=== PATIENT | female | born 1930 | race Caucasian/White ===

== ENCOUNTER 2018-06-04 17:54 | Inpatient (IN) ==
[2018-06-04] MEDS ORDERED: *HR* FentaNYL (PF) 100 MCG/2 ML VIAL IVP ONE ×2 (18:04→20:07)
--- NOTE | 2018-06-04 18:09 | Emergency Department Note ---
Disposition Clinical Impression: Fall Qualifiers: Encounter type: initial encounter Qualified Code(s): W19.XXXA - Unspecified fall, initial encounter UTI (urinary tract infection) Qualifiers: Urinary tract infection type: site unspecified Hematuria presence: without hematuria Qualified Code(s): N39.0 - Urinary tract infection, site not specified Hip fracture, left Qualifiers: Encounter type: initial encounter Fracture type: closed Qualified Code(s): S72.002A - Fracture of unspecified part of neck of left femur, initial encounter for closed fracture Disposition: Admitted As Inpatient Condition: Good Referrals: Felipe Holland DO [Primary Care Provider] - Forms: ED Satisfaction Letter Time of Disposition: 20:37 Fall HPI - General Chief Complaint: ED Extremity Injury, Lower Stated Complaint: Possible L hip fracture Time Seen by Provider: 06/04/18 18:02 Source: patient, family Nursing Notes Reviewed: Yes Vital Signs Reviewed: Yes - History of Present Illness HPI Narrative: 87-year-old female presents from home via EMS for evaluation after a fall. Patient was ambulated in her living room and fell. She is a history of recurrent falls and is currently being evaluated by her primary care physician. Patient without family who is in the home as well. She was on the floor for no more than 5 minutes. Family called EMS who transported patient this facility. Patient reports left hip pain. She denies hitting her head and denies loss of consciousness. Antiplatelet: None Anticoagulant: None PMH: GERD No history of hypertension, hyperlipidemia, CAD or ACS, diabetes ROS: Positive: Fall Negative: Fever, chills, nausea, vomiting, chest pains, palpitations, dyspnea, diaphoresis, neck pain, head pain, back pain, confusion, changes in vision, focused numbness or tingling - Related Data Allergies Allergy/AdvReac Type Severity Reaction Status Date / Time No Known Allergies Allergy Verified 06/04/18 18:02 All systems ED: reviewed and negative except as stated. Review of Systems: As Per HPI Fall PMH - Past Medical History Medical history: Reports: other - Social History Smoking Status: Former smoker Alcohol use: Reports: none Drug use: Reports: none Physical Exam Vital Signs Reviewed General: Patient is alert, oriented, and in no acute distress. Head: atraumatic, normocephalic Eye: normal appearance, PERRL, EOMI, no scleral icterus, no conjunctival injection ENT: mucous membranes moist, normal external ear exam Neck: normal inspection, trachea midline, full ROM Chest: normal inspection, symmetric chest rise Respiratory: Good respiratory effort. Bilateral breath sounds are clear without wheezing, crackles, or rhonchi. Cardiovascular: Regular rate and rhythm. No clicks, rubs, gallops, or murmors. Normal heart sounds. Abdomen: Bowel sounds present normoactive. Abdomen is soft, nondistended, and nontender. No guarding or rebound. No organomegaly noted. Musculoskeletal: Is able to wiggle her toes bilaterally. Left lower extremity shortened and externally rotated. Exquisite tenderness over left greater trochanter. No midline C-spine, T-spine, L-spine tenderness. No tenderness to light pressure to bilateral ASIS. Skin: warm, dry, intact. Neuro: GCS 15. Internal questions briskly and appropriately. Psych: Patient's affect is appropriate for situation. - General Limitations: no limitations General appearance: alert, in no apparent distress Course Course Narrative: EKG dated 06/04/2018 at 18:10 interpreted as sinus rhythm with rate of 77. PA 207; first-degree AV block. QRS 97, QTC 455. Normal axis. Nonspecific ST-T changes. Compared to previous EKG dated 03/17/2011 showing no acute ischemic changes or comparison; comparative EKG is sinus rhythm with no first-degree AV block. Recent MRI brain as part of the outpatient workup for her frequent falls was unremarkable. Serum hematology is unremarkable. Serum chemistry shows slight elevation in creatinine. This is consistent and actually slightly better than patient's baseline chronic kidney disease. EKG shows no acute ischemic changes. Urinalysis concerning for UTI; will cover empirically with 1 g Rocephin. Pain well-controlled with as needed doses of sentinel [address] head shows no acute process. CT cervical spine shows no acute process; multilevel degenerative changes present. X-ray chest unremarkable. X-ray pelvis and left hip shows left intertrochanteric fracture with varus deformity. I discussed the above with the admitting hospitalist, Dr. Jama, who agrees to accept the patient for fall, UTI, left hip fracture with orthopedic consult. I discussed the above with on-call orthopedic surgery, Dr. Chacon. He agrees to see the patient as consultation. Plan for surgery tomorrow; likely tomorrow evening. Nothing by mouth after midnight; this order has been ordered. Cervical Spine CT 06/04/18 18:02 IMPRESSION: No acute intracranial abnormality. 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 D/ / Mario De La Rosa / Mario De La Rosa Interpreting Provider: Mario De La Rosa Chest X-Ray 06/04/18 18:02 IMPRESSION: No acute cardiopulmonary disease. D/ / Kamlesh Aiken MD / Kamlesh Aiken MD Interpreting Provider: Kamlesh Aiken MD Head CT 06/04/18 18:02 IMPRESSION: No acute intracranial abnormality. 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 D/ / Mario De La Rosa / Mario De La Rosa Interpreting Provider: Mario De La Rosa Hip X-Ray 06/04/18 18:02 IMPRESSION: Acute intertrochanteric fracture of the left hip with varus deformity. D/ / Kamlesh Aiken MD / Kamlesh Aiken MD Interpreting Provider: Kamlesh Aiken MD Vital Signs Temperature 98.1 F 06/04/18 17:58 Pulse Rate 80 06/04/18 17:58 Respiratory Rate 16 06/04/18 17:58 Blood Pressure 170/79 06/04/18 17:58 O2 Sat by Pulse Oximetry 100 06/04/18 17:58 Temperature 98.1 F 06/04/18 17:58 Pulse Rate 80 06/04/18 17:58 Respiratory Rate 16 06/04/18 17:58 Blood Pressure 170/79 06/04/18 17:58 O2 Sat by Pulse Oximetry 100 06/04/18 17:58 Oxygen Delivery Oxygen Delivery Room Air Fall - Lab Data Result diagrams: 06/04/18 18:12 06/04/18 18:12 Lab Results 06/04/18 06/04/18 06/04/18 Range/Units 18:12 18:12 18:12 WBC 6.5 (4.3-11.1) K/mcL RBC 4.41 (3.82-4.97) M/mcL Hgb 12.8 (11.5-15.4) g/dL Hct 40.2 (35.3-44.9) % MCV 91.2 (83.0-100.0) fL MCH 29.0 (28.0-33.3) pg MCHC 31.8 (31.6-35.5) g/dL RDW 13.7 (11.5-14.5) % Plt Count 189 (140-400) K/mcL MPV 9.5 (9.4-12.4) fL Immature Gran % 1.4 (0-4) % Seg Neutrophils % 57.2 % Lymphocytes % 30.7 % Monocytes % 8.7 % Eosinophils % 1.4 % Basophils % 0.6 % Neutrophils # 3.7 (1.6-8.9) K/mcL Lymphocytes # 2.0 (0.6-4.6) K/mcL Monocytes # 0.6 (0.0-1.3) K/mcL Eosinophils # 0.1 (0.0-0.6) K/mcL Basophils # 0.0 (0.0-0.2) K/mcL PT 12.3 H (9.4-12.1) Seconds INR 1.1 Sodium 137 (136-145) mEq/L Potassium 4.6 (3.5-5.1) mEq/L Chloride 110 H (98-107) mEq/L Carbon Dioxide 20 L (23-29) mEq/L BUN 27 H (8-23) mg/dL Creatinine 1.28 H (0.60-1.20) mg/dL Est GFR ( Amer) 48 L (> 60) Est GFR (Non-Af Amer) 39 L (> 60) BUN/Creatinine Ratio 21 (6-26) Glucose 89 (70-105) mg/dL Calculated Osmolality 289 (280-300) Lactic Acid (0.5-2.2) mmol/L Calcium 9.2 (8.6-10.3) mg/dL Urine Color (Yellow) Urine Clarity (Clear) Urine pH (5.0-8.0) pH Units Ur Specific [place] (1.010-1.025) Urine Protein (Neg-Trace) mg/dL Urine Glucose (UA) (Normal) mg/dL Urine Ketones (Negative) mg/dL Urine Blood (Negative) Urine Nitrite (Negative) Urine Bilirubin (Negative) Urine Urobilinogen (Normal) mg/dL Ur Leukocyte Esterase (Negative) Urine Microscopic RBC (0-3) per hpf Urine Microscopic WBC (0-3) per hpf Ur Squamous Epith Cells (None-Few) per lpf Urine Bacteria (None-Few) per hpf Hyaline Casts (None-Few) per lpf Urine Yeast Ur Culture Indicated? (NO) 06/04/18 06/04/18 Range/Units 18:12 19:23 WBC (4.3-11.1) K/mcL RBC (3.82-4.97) M/mcL Hgb (11.5-15.4) g/dL Hct (35.3-44.9) % MCV (83.0-100.0) fL MCH (28.0-33.3) pg MCHC (31.6-35.5) g/dL RDW (11.5-14.5) % Plt Count (140-400) K/mcL MPV (9.4-12.4) fL Immature Gran % (0-4) % Seg Neutrophils % % Lymphocytes % % Monocytes % % Eosinophils % % Basophils % % Neutrophils # (1.6-8.9) K/mcL Lymphocytes # (0.6-4.6) K/mcL Monocytes # (0.0-1.3) K/mcL Eosinophils # (0.0-0.6) K/mcL Basophils # (0.0-0.2) K/mcL PT (9.4-12.1) Seconds INR Sodium (136-145) mEq/L Potassium (3.5-5.1) mEq/L Chloride (98-107) mEq/L Carbon Dioxide (23-29) mEq/L BUN (8-23) mg/dL Creatinine (0.60-1.20) mg/dL Est GFR ( Amer) (> 60) Est GFR (Non-Af Amer) (> 60) BUN/Creatinine Ratio (6-26) Glucose (70-105) mg/dL Calculated Osmolality (280-300) Lactic Acid 1.3 (0.5-2.2) mmol/L Calcium (8.6-10.3) mg/dL Urine Color Yellow (Yellow) Urine Clarity Cloudy A (Clear) Urine pH 5.0 (5.0-8.0) pH Units Ur Specific [place] 1.018 (1.010-1.025) Urine Protein Negative (Neg-Trace) mg/dL Urine Glucose (UA) Normal (Normal) mg/dL Urine Ketones Negative (Negative) mg/dL Urine Blood Moderate H (Negative) Urine Nitrite Positive A (Negative) Urine Bilirubin Negative (Negative) Urine Urobilinogen Normal (Normal) mg/dL Ur Leukocyte Esterase Moderate H (Negative) Urine Microscopic RBC 0-3 (0-3) per hpf Urine Microscopic WBC 30-50 H (0-3) per hpf Ur Squamous Epith Cells Few (None-Few) per lpf Urine Bacteria Many H (None-Few) per hpf Hyaline Casts None Seen (None-Few) per lpf Urine Yeast [employer]ICER Ur Culture Indicated? YES A (NO) Attestation Statement - Attestation Attestation: I, Isreal Gomez, examined this patient and my medical decision-making was reviewed with the AUTO B[employer] STRAIGHTENER/PA/Advanced Practice Nurse/Resident Physician. I agree with the documented findings, disposition and treatment plan as described except to the extent set forth below. 87-year-old female presents emergency Department with concerns of left hip pain after fall. Patient has had multiple falls in the past couple days. Patient states she continues lose her balance. She has intermittent rotated and shortened left lower extremity. Pelvic x-ray shows left hip fracture of the intertrochanteric area. The rest of the imaging and laboratory evaluation did not show significant amount. Patient will be admitted to the hospitalist and orthopedic surgeon was counseled that. Patient pain under control prior to departure to the emergency department.
[2018-06-04 18:27] LABS: Basophils % 0.6 %; Eosinophils # 0.1 K/mcL (0.0-0.6); Eosinophils % 1.4 %; Hematocrit 40.2 % (35.3-44.9); Hemoglobin 12.8 g/dL (11.5-15.4); Immature Granulocytes % 1.4 % (0-4); Lymphocytes % 30.7 %; Mean Corpuscular HGB Conc 31.8 g/dL (31.6-35.5); Mean Corpuscular Volume 91.2 fL (83.0-100.0); Mean Platelet Volume 9.5 fL (9.4-12.4); Monocytes # 0.6 K/mcL (0.0-1.3); Monocytes % 8.7 %; Neutrophils # 3.7 K/mcL (1.6-8.9); Platelet Count 189 K/mcL (140-400); Red Blood Count 4.41 M/mcL (3.82-4.97); Red Cell Distribution Width 13.7 % (11.5-14.5); Segmented Neutrophils % 57.2 %
[2018-06-04 18:46] LABS: INR 1.1; Prothrombin Time 12.3 Seconds (9.4-12.1)
[2018-06-04 18:49] LABS: Calcium 9.2 mg/dL (8.6-10.3); Potassium 4.6 mEq/L (3.5-5.1)
[2018-06-04 19:33] LABS: Bilirubin,Urine Negative (Negative); Blood,Urine Moderate (Negative); Clarity,Urine Cloudy (Clear); Color,Urine Yellow (Yellow); Glucose,Urine (UA) Normal (Normal); Ketones,Urine Negative (Negative); Leukocyte Esterase,Urine Moderate (Negative); Nitrite,Urine Positive (Negative); Protein,Urine Negative (Neg-Trace); Specific Gravity,Urine 1.018 (1.010-1.025); Urobilinogen,Urine Normal (Normal)
[2018-06-04 19:35] LABS: Bacteria,Urine Many per hpf (None-Few); Hyaline Casts,Urine None Seen per lpf (None-Few); RBC,Urine 0-3 per hpf (0-3); Squamous Epithelial Cell,Urine Few per lpf (None-Few); WBC,Urine 30-50 per hpf (0-3)
[2018-06-04] MEDS ORDERED: cefTRIAXone 1,000 MG in 0.9 % Sodium Chloride Mini Bag 100 ML IVPB ONE (20:31)
[2018-06-04] MEDS ORDERED: Naloxone 0.4 MG/ML INJ IVP PRN (21:03)
--- NOTE | 2018-06-04 22:15 | Internal Med History&Physical ---
Date of Encounter: 06/04/18 Time of Encounter: 22:13 Internal Medicine - H&P: HPI Chief complaint: FALL Admitted From: Home Plans for Post Hospital Care: Transfer Inp Rehab Fac History of present illness: Mayra Ramos is an 87 year old woman who has been evaluated as an outpatient for recurring falls was brought in by EMS today after a fall that she suffered while she was ambulating in her living room. She reported left hip pain but denied hitting her head or losing consciousness. She was clinically and h emodynamically stable upon arrival. Imaging studies showed severe degenerative changes of her spine and an acute intertrochanteric fracture of the left hip with varus deformity an avulsion of the lesser trochanter with bones diffusely demineralized. She is admitted for further care. Past Med Surg Social Fam HX - Past Medical History Medical history: other Additional medical history: ARTHRITIS, ANXIETY - Past Surgical History Additional surgical history: ORTHOPEDIC SX'S - Social History Smoking Status: Former smoker Smokeless Tobacco Status: No Alcohol use: none Drug use: none Internal Medicine - H&P: Meds Antacid 06/04/18 [History] Colace 06/04/18 [History] Prozac 40 mg PO BID 06/04/18 [History] Allergy/AdvReac Type Severity Reaction Status Date / Time No Known Allergies Allergy Verified 06/04/18 18:02 All Systems PM: A 10-system review of systems was performed and is negative for pertinent findings except as documented above in the HPI. Family history reviewed and found non-contributory. - Constitutional Vitals: Temp Pulse Resp BP Pulse Ox 98.1 F 75 16 120/52 99 06/04/18 17:58 06/04/18 21:06 06/04/18 21:06 06/04/18 21:06 06/04/18 21:06 Exam: Vitals: Reviewed General: NAD. Skin: Warm and supple. HEENT: Moist mucous membranes. No conjunctivae pallor. Neck: No lymphadenopathy. No JVD. No carotid bruits. No palpable thyroid. Chest: Normal thoracic expansion. Normal breath sounds. Clear to auscultation. Heart: Normal S1 & S2; rhythmic. No rubs or murmurs. Abdomen: Non-distended, soft and non-tender to palpation. No peritoneal reaction. Extremities: Shortened left lower extremity with external rotation and exquisite tenderness over the left greater trochanter. Neurological: Awake, alert and oriented to person, place and time. Psych: Affect appropriate. Internal Med - H&P Results - Labs CBC & Chem 7: 06/04/18 18:12 06/04/18 18:12 Labs: Short CBC 06/04/18 Range/Units 18:12 WBC 6.5 (4.3-11.1) K/mcL Hgb 12.8 (11.5-15.4) g/dL Hct 40.2 (35.3-44.9) % Plt Count 189 (140-400) K/mcL Neutrophils # 3.7 (1.6-8.9) K/mcL BMP 06/04/18 18:12 Sodium 137 Potassium 4.6 Chloride 110 H Carbon Dioxide 20 L BUN 27 H Creatinine 1.28 H Glucose 89 Calcium 9.2 Urine 06/04/18 Range/Units 19:23 Urine Color Yellow (Yellow) Urine Clarity Cloudy A (Clear) Urine pH 5.0 (5.0-8.0) pH Units Ur Specific [place] 1.018 (1.010-1.025) Urine Protein Negative (Neg-Trace) mg/dL Urine Glucose (UA) Normal (Normal) mg/dL - Impressions ITS Impressions Cervical Spine CT 06/04/18 18:02 IMPRESSION: No acute intracranial abnormality. 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 D/ / Mario De La Rosa / Mario De La Rosa Interpreting Provider: Mario De La Rosa Chest X-Ray 06/04/18 18:02 IMPRESSION: No acute cardiopulmonary disease. D/ / Kamlesh Aiken MD / Kamlesh Aiken MD Interpreting Provider: Kamlesh Aiken MD Head CT 06/04/18 18:02 IMPRESSION: No acute intracranial abnormality. 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 D/ / Mario De La Rosa / Mario De La Rosa Interpreting Provider: Mario De La Rosa Hip X-Ray 06/04/18 18:02 IMPRESSION: Acute intertrochanteric fracture of the left hip with varus deformity. D/ / Kamlesh Aiken MD / Kamlesh Aiken MD Interpreting Provider: Kamlesh Aiken MD - Assessment and Plan (1) Hip fracture, left Current Visit: Yes Status: Acute Assessment and plan: Will be evaluated by orthopedics in the morning for surgical considerations. The patient has no known history of ischemic heart disease, congestive heart failure, cerebrovascular disease, preoperative insulin therapy for creatinine elevation greater than 2 and therefore is a class I risk for an intermediate risk surgical procedure. EKG shows normal sinus rhythm. No further testing deemed necessary at this time. Qualifiers: Encounter type: initial encounter Fracture type: closed Qualified Code(s ): S72.002A - Fracture of unspecified part of neck of left femur, initial encounter for closed fracture (2) Fall Current Visit: Yes Status: Acute Assessment and plan: She will benefit from PT/OT evaluation and inpatient rehabilitation for conditioning and strength exercises. Qualifiers: Encounter type: initial encounter Qualified Code(s): W19.XXXA - Unspecified fall, initial encounter (3) UTI (urinary tract infection) Current Visit: Yes Status: Acute Assessment and plan: Will treat her as a simple cystitis with a 3 day course of abx. No systemic signs of illness warranting a prolongation of therapy. Qualifiers: Urinary tract infection type: site unspecified Hematuria presence: without hematuria Qualified Code(s): N39.0 - Urinary tract infection, site not specified (4) DVT prophylaxis Current Visit: Yes Status: Acute Assessment and plan: SubQ heparin ordered. - Time Spent With Patient Total time spent is greater than 50% in coordination of care (as documented) at patient's floor/unit and/or counseling patient: Greater than 35 minutes
[2018-06-04] MEDS: *HR* Heparin 5,000 UNIT/ML VIAL SQ SCH (23:41)
[2018-06-04] MEDS: OXYCODONE Oral CONC 10 MG/0.5 ML ORAL.SYG SL PRN (23:41)
[2018-06-05] MEDS: Ketorolac 30 MG/ML VIAL IVP PRN ×2 (04:57→11:54)
[2018-06-05] MEDS: *HR* Heparin 5,000 UNIT/ML VIAL SQ SCH ×3 (05:17→21:13)
[2018-06-05] MEDS: CEFTRIAXONE IVPB SCH (09:16)
[2018-06-05] MEDS: WATER FOR INJ IVPB SCH (09:16)
--- NOTE | 2018-06-05 13:27 | Orthopedic Consult Note ---
Date of Encounter: 06/05/18 Time of Encounter: 13:00 Assessment and Plan (1) Hip fracture, left Current Visit: Yes Status: Acute Xrays showed Acute intertrochanteric fracture of the left hip with varus deformity. Discussed case with Dr. Lopez who recommends left hip IM nailing to be performed tomorrow. I reviewed the procedure as well as r/b/a with the patient and family. All questions were answered and she expressed understanding. Consent was signed and placed in chart. NPO after midnight tonight. Pain control per primary team. She has been cleared for surgery per hospitalist note and confirmed with nurse. She is receiving treatment for UTI. NWB until surgery. Will follow up with Jen Berkowitz PA-C in [facility] office at [phone]. appt card to be sent to floor. Qualifiers: Encounter type: initial encounter Fracture type: closed Qualified Code(s): S72.002A - Fracture of unspecified part of neck of left femur, initial encounter for closed fracture History of Present Illness Chief complaint: Left hip pain HPI: Ms. Ramos is a 87 year old female who presented to the ER with left hip pain after a fall yesterday at home around 4pm. She states she just got up out of a chair and bent over to get a tissue when she lost her balance and fell onto her left side. Family states she has had recurrent falls and has been following outpatient to investigate these falls but so far no known causes found. Pain described as dull aching that is localized to the hip but will radiate more sharp pain down into thigh with any motion of the leg. She denies any numbness or tingling in extremities. She does have a walker at home that she uses sometimes but was not using it when she fell. She denies hitting her head or LOC. Denies any other symptoms at this time. Past Med Surg Social Fam HX - Past Medical History Medical history: other Additional medical history: ARTHRITIS, ANXIETY - Past Surgical History Additional surgical history: ORTHOPEDIC SX'S - Social History Smoking Status: Former smoker Smokeless Tobacco Status: No Alcohol use: none Drug use: none Medications and Allergies Acetaminophen [8Hr Arthritis Pain] 650 mg PO Q8H PRN 06/05/18 [History] Docusate [Colace] 100 mg PO DAILY 06/05/18 [History] FLUoxetine HCl [Fluoxetine HCl] 40 mg PO BID 06/05/18 [History] LORazepam [Ativan] 0.5 mg PO Q12H PRN 06/05/18 [History] Allergy/AdvReac Type Severity Reaction Status Date / Time No Known Allergies Allergy Verified 06/05/18 09:29 All Systems Reviewed: The remainder of the systems were reviewed and are negative - Constitutional Constitutional: as per HPI - Cardiovascular Cardiovascular: as per HPI - Respiratory Respiratory: as per HPI - Musculoskeletal Musculoskeletal: as per HPI Physical Exam - Constitutional Vitals: Temp Pulse Resp BP Pulse Ox 98.8 F 66 16 92/53 93 06/05/18 11:31 06/05/18 11:31 06/05/18 06:44 06/05/18 11:31 06/05/18 11:31 - Hip left Tenderness with palpation: lateral (no erythema, ecchymosis or open wounds noted to left hip. tenderness to palpation of the lateral hip. LLE is shortened and externally rotated. no calf tenderness to palpation, good dorsiflexion of foot, sensation intact distally. ) Results - Labs Result Diagrams: 06/04/18 18:12 06/04/18 18:12 Labs: Abnormal lab results PT 12.3 Seconds (9.4-12.1) H 06/04/18 18:12 Chloride 110 mEq/L (98-107) H 06/04/18 18:12 Carbon Dioxide 20 mEq/L (23-29) L 06/04/18 18:12 BUN 27 mg/dL (8-23) H 06/04/18 18:12 Creatinine 1.28 mg/dL (0.60-1.20) H 06/04/18 18:12 Est GFR ( Amer) 48 (> 60) L 06/04/18 18:12 Est GFR (Non-Af Amer) 39 (> 60) L 06/04/18 18:12 Urine Clarity Cloudy (Clear) A 06/04/18 19:23 Urine Blood Moderate (Negative) H 06/04/18 19:23 Urine Nitrite Positive (Negative) A 06/04/18 19:23 Ur Leukocyte Esterase Moderate (Negative) H 06/04/18 19:23 Urine Microscopic WBC 30-50 per hpf (0-3) H 06/04/18 19:23 Urine Bacteria Many per hpf (None-Few) H 06/04/18 19:23 Ur Culture Indicated? YES (NO) A 06/04/18 19:23 H & H 06/04/18 Range/Units 18:12 Hgb 12.8 (11.5-15.4) g/dL Hct 40.2 (35.3-44.9) % All other labs normal. - Diagnostic results Hip x-ray: report reviewed (Acute intertrochanteric fracture of the left hip with varus deformity.), image reviewed Consult Discharge Plan - Plan Referrals: Felipe Holland DO [Primary Care Provider] - - Attending Attestation Case and plan of care discussed with supervising physician, Dr. Lopez, who was available for all aspects of care.
--- NOTE | 2018-06-05 14:57 | Internal Med Progress Note ---
<Brock Odonnell - Last Filed: 06/05/18 15:38> Hospitalist Progress Note - Encounter Date of Encounter: 06/05/18 - Exam Vitals: Temp Pulse Resp BP Pulse Ox 98.8 F 66 16 92/53 93 06/05/18 11:31 06/05/18 11:31 06/05/18 06:44 06/05/18 11:31 06/05/18 11:31 - Assessment and Plan (1) Intertrochanteric fracture of left hip Current Visit: Yes Status: Acute (2) Hypotension Current Visit: Yes Status: Acute (3) UTI (urinary tract infection) Current Visit: Yes Status: Acute (4) Fall Current Visit: Yes Status: Acute (5) Hip fracture, left Current Visit: Yes Status: Acute (6) DVT prophylaxis Current Visit: Yes Status: Acute (7) CKD (chronic kidney disease) stage 3, GFR 30-59 ml/min Current Visit: Yes Status: Chronic - Time Spent with Patient Total time spent is greater than 50% in coordination of care (as documented) at patient's floor/unit and/or counseling patient: Internal Medicine: Result - Labs CBC & Chem 7: 06/04/18 18:12 06/04/18 18:12 Labs: Short CBC 06/04/18 Range/Units 18:12 WBC 6.5 (4.3-11.1) K/mcL Hgb 12.8 (11.5-15.4) g/dL Hct 40.2 (35.3-44.9) % Plt Count 189 (140-400) K/mcL Neutrophils # 3.7 (1.6-8.9) K/mcL BMP 06/04/18 18:12 Sodium 137 Potassium 4.6 Chloride 110 H Carbon Dioxide 20 L BUN 27 H Creatinine 1.28 H Glucose 89 Calcium 9.2 Urine 06/04/18 Range/Units 19:23 Urine Color Yellow (Yellow) Urine Clarity Cloudy A (Clear) Urine pH 5.0 (5.0-8.0) pH Units Ur Specific [place] 1.018 (1.010-1.025) Urine Protein Negative (Neg-Trace) mg/dL Urine Glucose (UA) Normal (Normal) mg/dL - ABG Interpretation ABG results: PT/INR, D-dimer PT 12.3 Seconds (9.4-12.1) H 06/04/18 18:12 - Impressions Impressions Cervical Spine CT 06/04/18 18:02 IMPRESSION: No acute intracranial abnormality. 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 D/ / Mario De La Rosa / Mario De La Rosa Interpreting Provider: Mario De La Rosa Chest X-Ray 06/04/18 18:02 IMPRESSION: No acute cardiopulmonary disease. D/ / Kamlesh Aiken MD / Kamlesh Aiken MD Interpreting Provider: Kamlesh Aiken MD Head CT 06/04/18 18:02 IMPRESSION: No acute intracranial abnormality. 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 D/ / Mario De La Rosa / Mario De La Rosa Interpreting Provider: Mario De La Rosa Hip X-Ray 06/04/18 18:02 IMPRESSION: Acute intertrochanteric fracture of the left hip with varus deformity. D/ / Kamlesh Aiken MD / Kamlesh Aiken MD Interpreting Provider: Kamlesh Aiken MD Consult Discharge Plan - Plan Referrals: Felipe Holland DO [Primary Care Provider] - - Attending Attestation I examined this patient and my medical decision-making was reviewed with the Resident Physician on 06/05/18. I agree with the documented findings, disposition and treatment plan as described except to the extent set forth below. Ms Ramos is currently admitted for acute L hip fracture. She remains moderate to high risk due to potential for worsening clinical status. Ms Ramos is eating breakfast. Feels OK at this time. Has some pain. BP has been low today. Has received IV fluids. No fever or chills. Receiving IV Ceftriaxone for presumed UTI Exam Alert Comfortable Mucus membranes dry Heart not tachy. No murmur Lungs clear Abd soft No edema I/P 1. L intertrochanteric fracture - OR tomorrow 2. UTI - on Ceftriaxone 3. Fall - monitoring 4. Hypotension - suspect due to volume loss - monitor H/H with fracture. IV fluids given. Further diagnoses and plan as above. <Antony Cifuentes - Last Filed: 06/05/18 21:51> Hospitalist Progress Note - Encounter Date of Encounter: 06/05/18 Time of Encounter: 08:45 - Subjective Interval History: No acute events overnight. She endorses no acute distress. Continues to be Rocephin for UTI. Patient had a urine output of 50 mL since her admission. on bladder can she had zero urine output , afebrile, no white blood count, but pressure of 92/53. given her BP with systolics 90s and no Hx of CAD/CHF i bolused her with 500 mL NS. Repeat BP was 104/65 . Patient is scheduled for her surgery tomorrow - Exam Vitals: Temp Pulse Resp BP Pulse Ox 98.8 F 66 16 92/53 93 06/05/18 11:31 06/05/18 11:31 06/05/18 06:44 06/05/18 11:31 06/05/18 11:31 Exam: Vitals: Reviewed General: NAD. Skin: Warm and supple. HEENT: Moist mucous membranes. No conjunctivae pallor. Neck: No lymphadenopathy. No JVD. No carotid bruits. No palpable thyroid. Chest: Normal thoracic expansion. Normal breath sounds. Clear to auscultation. Heart: Normal S1 & S2; rhythmic. No rubs or murmurs. Abdomen: Non-distended, soft and non-tender to palpation. No peritoneal reacti on. Extremities: Shortened left lower extremity with external rotation and exquisite tenderness over the left greater trochanter. Neurological: Awake, alert and oriented to person, place and time. Psych: Affect appropriate. - Assessment and Plan (1) Fall Current Visit: Yes Status: Acute Assessment and Plan: -Patient endorses that she fell while trying to reach for something on the floor and lost her balance. -Patient's chest x-ray showed acute intertrochanteric fracture left hip with varus deformity -Patient's head CT was negative for any intracranial infarcts or masses. -Her cervical spine CT showed moderate several multilevel degenerative changes. -Orthopedic surgeries on board case has been discussed with the surgeon who recommends left hip IM nailing tomorrow - NPO tonight -Non weightbearing until surgery. -She has no past medical history of ischemic heart disease, CHF, airway disease like COPD/asthma therefore she would not be needing a preoperative cardiac risk assessment. Patient's EKG on admission was negative for any ST-T changes, heart strain/block,Brugada pattern,, LVH or HOCM -PT/OT evaluation s/p surgery for conditioning and strength exercises . (2) Hip fracture, left Current Visit: Yes Status: Acute Assessment and Plan: as above (3) UTI (urinary tract infection) Current Visit: Yes Status: Acute Assessment and Plan: -Patient's UA was positive for moderate leukocyte esterase and nitrites. There was also evidence of moderate amount of urine blood. -Exam patient endorses no suprapubic pain. She was afebrile with no carmen kocytosis. -Rocephin for a total of 3 days . (4) Hypotension Current Visit: Yes Status: Acute Assessment and Plan: -She was hypotensive this morning with systolics of 92/53. Likely due to bleeding at the interntrochanteric area because of fall. -No sepsis, patient is afebrile , not leukocytotic -s/p 500 mL NaCl- repeat blood pressure was 104/65. -Hb dropped from 12.8 to 10.2, repeat H&H pending -Continue to monitor (5) DVT prophylaxis Current Visit: Yes Status: Acute Assessment and Plan: SubQ heparin ordered. - Time Spent with Patient Total time spent is greater than 50% in coordination of care (as documented) at patient's floor/unit and/or counseling patient: Internal Medicine: Result - Labs CBC & Chem 7: 06/05/18 18:56 06/04/18 18:12 Labs: Short CBC 06/04/18 Range/Units 18:12 WBC 6.5 (4.3-11.1) K/mcL Hgb 12.8 (11.5-15.4) g/dL Hct 40.2 (35.3-44.9) % Plt Count 189 (140-400) K/mcL Neutrophils # 3.7 (1.6-8.9) K/mcL BMP 06/04/18 18:12 Sodium 137 Potassium 4.6 Chloride 110 H Carbon Dioxide 20 L BUN 27 H Creatinine 1.28 H Glucose 89 Calcium 9.2 Urine 06/04/18 Range/Units 19:23 Urine Color Yellow (Yellow) Urine Clarity Cloudy A (Clear) Urine pH 5.0 (5.0-8.0) pH Units Ur Specific [place] 1.018 (1.010-1.025) Urine Protein Negative (Neg-Trace) mg/dL Urine Glucose (UA) Normal (Normal) mg/dL - ABG Interpretation ABG results: PT/INR, D-dimer PT 12.3 Seconds (9.4-12.1) H 06/04/18 18:12 - Impressions Impressions Cervical Spine CT 06/04/18 18:02 IMPRESSION: No acute intracranial abnormality. 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 D/ / Mario De La Rosa / Mario De La Rosa Interpreting Provider: Mario De La Rosa Chest X-Ray 06/04/18 18:02 IMPRESSION: No acute cardiopulmonary disease. D/ / Kamlesh Aiken MD / Kamlesh Aiken MD Interpreting Provider: Kamlesh Aiken MD Head CT 06/04/18 18:02 IMPRESSION: No acute intracranial abnormality. 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 D/ / Mario De La Rosa / Mario De La Rosa Interpreting Provider: Mario De La Rosa Hip X-Ray 06/04/18 18:02 IMPRESSION: Acute intertrochanteric fracture of the left hip with varus deformity. D/ / Kamlesh Aiken MD / Kamlesh Aiken MD Interpreting Provider: Kamlesh Aiken MD <Brock Odonnell Skyla - Last Filed: 06/05/18 15:38> (1) Intertrochanteric fracture of left hip Qualifiers: Encounter type: subsequent encounter Fracture type: closed Fracture alignment: displaced Fracture healing: with routine healing Qualified Code(s): S72.142D - Displaced intertrochanteric fracture of left femur, subsequent encounter for closed fracture with routine healing (2) Hypotension Qualifiers: Hypotension type: hypotension due to hypovolemia Qualified Code(s): I95.89 - Other hypotension; E86.1 - Hypovolemia (3) UTI (urinary tract infection) Qualifiers: Urinary tract infection type: acute cystitis Hematuria presence: with hematuria Qualified Code(s): N30.01 - Acute cystitis with hematuria (4) Fall Qualifiers: Encounter type: subsequent encounter Qualified Code(s): W19.XXXD - Unspecified fall, subsequent encounter (5) Hip fracture, left Qualifiers: Encounter type: initial encounter Fracture type: closed Qualified Code(s): S72.002A - Fracture of unspecified part of neck of left femur, initial encounter for closed fracture <Antony Cifuentes - Last Filed: 06/05/18 21:51> (1) Fall Qualifiers: Encounter type: subsequent encounter Qualified Code(s): W19.XXXD - Unspecified fall, subsequent encounter (2) Hip fracture, left Qualifiers: Encounter type: initial encounter Fracture type: closed Qualified Code(s): S72.002A - Fracture of unspecified part of neck of left femur, initial encounter for closed fracture (3) UTI (urinary tract infection) Qualifiers: Urinary tract infection type: acute cystitis Hematuria presence: with hematuria Qualified Code(s): N30.01 - Acute cystitis with hematuria (4) Hypotension Qualifiers: Hypotension type: hypotension due to hypovolemia Qualified Code(s): I95.89 - Other hypotension; E86.1 - Hypovolemia
[2018-06-05] MEDS ORDERED: 0.9 % Sodium Chloride 500 ML IVC ONE (15:34)
[2018-06-05] MEDS ORDERED: *HR* LORazepam 0.5 MG TABLET PO PRN (15:49)
[2018-06-05 16:54] LABS: Hematocrit 31.7 % (35.3-44.9)
[2018-06-05 16:57] LABS: Hemoglobin 10.2 g/dL (11.5-15.4)
[2018-06-05 19:14] LABS: Hematocrit 32.1 % (35.3-44.9); Hemoglobin 10.5 g/dL (11.5-15.4)
--- NOTE | 2018-06-05 20:10 | Anesthesia Evaluation PreOp ---
Date of Encounter: 06/05/18 Time of Encounter: 22:11 - Past History Planned Operation: Left hip IM nail Cardiac History: Other (recurrent falls recently that are not syncopal in nature - so far negative outpatient workup) Pulmonary History: Former smoker DIRECTOR OF TRANSPORTATION History: Other (anxiety, facial sensations (likely neuropathic pain), unsteady gait) Other Medical History: Renal (ckd), Other (UTI) Anesthesia History: No Prior Anesthetic Complications, Past Anesthesia (orthopaedic surgeries) Alcohol Use: none Drug use: none Medications and Allergies Acetaminophen [8Hr Arthritis Pain] 650 mg PO Q8H PRN 06/05/18 [History] Docusate [Colace] 100 mg PO DAILY 06/05/18 [History] FLUoxetine HCl [Fluoxetine HCl] 40 mg PO BID 06/05/18 [History] LORazepam [Ativan] 0.5 mg PO Q12H PRN 06/05/18 [History] Allergy/AdvReac Type Severity Reaction Status Date / Time No Known Allergies Allergy Verified 06/05/18 09:29 - Meds/Allergy Pre-op Review Medications Reviewed: Yes Allergies Reviewed: Yes Beta Blockers on Current Med List: No Anesthesia Results - Labs 06/05/18 18:56 06/04/18 18:12 Anesthesia Exam Last Vital Signs Temp 98.8 F 06/05/18 18:29 Pulse 85 06/05/18 18:29 Resp 16 06/05/18 18:29 BP 89/59 06/05/18 18:29 Pulse Ox 94 06/05/18 18:29 Weight: 59 kg - HEENT Pupil (Motor): Pupils equal, EOMI Mallampati: III Teeth: Poor dentition Oral Opening: Greater than 3 - DIRECTOR OF TRANSPORTATION LOC: Oriented - Cardiac Rhythm: Regular Murmur: None - Pulmonary Breath Sounds: bilateral Clear Respiratory Effort: Symmetrical Anesthesia Assess/Plan ASA Score: 3 Level of consciousness: Cooperative Anesthetic Plan: General Monitoring Plan: Standard Monitors Recovery Plan: PACU
[2018-06-05] MEDS: FLUoxetine 20 MG CAPSULE PO SCH (21:13)
[2018-06-05] MEDS: OXYCODONE Oral CONC 10 MG/0.5 ML ORAL.SYG SL PRN (21:14)
[2018-06-06] MEDS ORDERED: Milk and Molasses Enema 200 ML RC ONE (02:45)
[2018-06-06] MEDS: *HR* Heparin 5,000 UNIT/ML VIAL SQ SCH ×2 (05:04→20:56)
[2018-06-06 06:02] LABS: Basophils % 0.4 %; Eosinophils % 0.4 %; Hemoglobin 10.8 g/dL (11.5-15.4); Immature Granulocytes % 0.8 % (0-4); Lymphocytes # 1.4 K/mcL (0.6-4.6); Mean Corpuscular HGB Conc 31.8 g/dL (31.6-35.5); Mean Corpuscular Hemoglobin 28.6 pg (28.0-33.3); Mean Corpuscular Volume 90.2 fL (83.0-100.0); Mean Platelet Volume 9.8 fL (9.4-12.4); Monocytes # 0.9 K/mcL (0.0-1.3); Platelet Count 143 K/mcL (140-400); Red Blood Count 3.77 M/mcL (3.82-4.97); Red Cell Distribution Width 13.6 % (11.5-14.5); Segmented Neutrophils % 74.4 %
[2018-06-06 06:07] LABS: INR 1.1; Prothrombin Time 12.5 Seconds (9.4-12.1)
[2018-06-06 06:17] LABS: Calcium 9.1 mg/dL (8.6-10.3); Potassium 4.8 mEq/L (3.5-5.1)
--- NOTE | 2018-06-06 08:01 | Internal Med Progress Note ---
<Rao Mcclure - Last Filed: 06/06/18 13:37> Hospitalist Progress Note - Encounter Date of Encounter: 06/06/18 Time of Encounter: 08:00 - Subjective Interval History: Patient was seen and examined at bedside this morning. She states that her hip is sore today but otherwise has no complaints. She is scheduled for hip pinning this afternoon with orthopedics. She states she is mildly anxious but otherwise has no concerns at this time. Denies any symptoms of fevers, chills, nausea, vomiting, dizziness, shortness of breath, chest pains. No overnight events - Exam Vitals: Temp Pulse Resp BP Pulse Ox 98.3 F 84 18 104/63 96 06/06/18 06:40 06/06/18 06:40 06/06/18 06:40 06/06/18 06:40 06/06/18 06:40 Exam: Gen.: Vitals noted. No acute distress. AAOx3, resting comfortably in bed. HEENT: PERRL/EOMI, oropharynx clear, Normocephalic, atraumatic, MMM Cardiac: RRR, no murmur, +S1/S2, No BLE edema Pulmonary: CTA bilaterally, no wheezes, rales or rhonchi, equal chest expansion, unlabored breathing Abdomen: soft, nontender, BS noted, no guarding, no palpable HSM Skin: warm and dry, no visible lesions. MSK: ROM not assessed, no joint swelling noted, gait no assessed while in bed. Non tender calf or clubbing. Left hip with no obvious hematoma, infection, deformity. Neuro: A&Ox3, moves all extremities, no focal deficits, sensation intact Psych: Appropriate mood and behavior, AOx3 - Assessment and Plan (1) Fall Current Visit: Yes Status: Acute Assessment and Plan: -Patient endorses that she fell while trying to reach for something on the floor and lost her balance. -Patient's chest x-ray showed acute intertrochanteric fracture left hip with varus deformity -Patient's head CT was negative for any intracranial infarcts or masses. -Her cervical spine CT showed moderate several multilevel degenerative changes. - Orthopedics consult, plan for surgery this afternoon -Non weightbearing per orthopedic recommendations -She has no past medical history of ischemic heart disease, CHF, airway disease like COPD/asthma. Patient is able to ambulate with walker at home without any anginal equivalent symptoms. - Patient's EKG on admission was negative for any ST-T changes, heart strain/block,Brugada pattern,, LVH or HOCM Plan - Plan to proceed with surgery this afternoon - Further recommendations per orthopedics - PT/OT evaluation following surgery for attentional rehabilitation - Pain control, symptom treatment (2) UTI (urinary tract infection) Current Visit: Yes Status: Acute Assessment and Plan: -Patient's UA was positive for moderate leukocyte esterase and nitrites. There was also evidence of moderate amount of urine blood. -Exam patient endorses no suprapubic pain. She was afebrile with no l eukocytosis. - Urine culture growing gram-negative rods, sensitivities pending - Nonseptic at this time Plan -Started on Rocephin per admitting team, will continue day 3 - Duration likely 3-5 days (3) Hip fracture, left Current Visit: Yes Status: Acute Assessment and Plan: as above (4) Hypotension Current Visit: Yes Status: Resolved Assessment and Plan: -She was hypotensive previously in this visit with blood pressures of 90s/50s - Etiology may be related to bleeding at the interntrochanteric area because of fall - Less likely suspicion for sepsis secondary to UTI - Blood pressure did respond to fluids - We will continue monitor this time -Continue to monitor (5) CKD (chronic kidney disease) stage 3, GFR 30-59 ml/min Current Visit: Yes Status: Chronic Assessment and Plan: - BUNs/creatinine of 37/1.52 - This appears to be around baseline levels - Continue monitor and expect a mild increasing creatinine with next labs after surgery depending on amount of blood loss - Avoid nephrotoxins, renally dose (6) DVT prophylaxis Current Visit: Yes Status: Acute Assessment and Plan: SubQ heparin ordered. (7) Anemia Current Visit: Yes Status: Acute Assessment and Plan: - Acute onset anemia with hemoglobin of 10.8 this morning - Likely secondary to traumatic fall with fracture of left hip as above - Baseline hemoglobin appears to be 12-13 - Hemoglobin has been stable 3 since admission with mild decreased from 12-10 - Hemodynamically has been borderline hypotensive however has responded to fluids Plan - We will carefully monitor as patient will proceed with surgery per orthopedics this afternoon - H/H will be ordered for this evening following surgery - Type and screen completed - We will transfuse as necessary - Low threshold for additional imaging if patient becomes symptomatic or hypotensive - Time Spent with Patient Total time spent is greater than 50% in coordination of care (as documented) at patient's floor/unit and/or counseling patient: Internal Medicine: Result - Labs CBC & Chem 7: 06/06/18 05:45 06/06/18 05:45 Labs: Short CBC 06/05/18 06/05/18 06/06/18 Range/Units 16:40 18:56 05:45 WBC 9.4 (4.3-11.1) K/mcL Hgb 10.2 L D 10.5 L 10.8 L (11.5-15.4) g/dL Hct 31.7 L 32.1 L 34.0 L (35.3-44.9) % Plt Count 143 (140-400) K/mcL Neutrophils # 7.0 (1.6-8.9) K/mcL BMP 06/06/18 05:45 Sodium 137 Potassium 4.8 Chloride 110 H Carbon Dioxide 19 L BUN 37 H Creatinine 1.52 H Glucose 126 H Calcium 9.1 - ABG Interpretation ABG results: PT/INR, D-dimer PT 12.5 Seconds (9.4-12.1) H 06/06/18 05:45 Consult Discharge Plan - Plan Referrals: Felipe Holland DO [Primary Care Provider] - <Brock Odonnell - Last Filed: 06/06/18 18:21> Hospitalist Progress Note - Encounter Date of Encounter: 06/06/18 - Exam Vitals: Temp Pulse Resp BP Pulse Ox 98.9 F 82 14 105/67 94 06/06/18 16:53 06/06/18 16:53 06/06/18 16:53 06/06/18 16:53 06/06/18 16:53 - Assessment and Plan (1) Fall Current Visit: Yes Status: Acute (2) UTI (urinary tract infection) Current Visit: Yes Status: Acute (3) Hip fracture, left Current Visit: Yes Status: Acute (4) DVT prophylaxis Current Visit: Yes Status: Acute (5) CKD (chronic kidney disease) stage 3, GFR 30-59 ml/min Current Visit: Yes Status: Chronic (6) Hypotension Current Visit: Yes Status: Resolved (7) Anemia Current Visit: Yes Status: Acute - Time Spent with Patient Total time spent is greater than 50% in coordination of care (as documented) at patient's floor/unit and/or counseling patient: Internal Medicine: Result - Labs CBC & Chem 7: 06/06/18 16:44 06/06/18 05:45 Labs: Short CBC 06/05/18 06/06/18 06/06/18 Range/Units 18:56 05:45 16:44 WBC 9.4 (4.3-11.1) K/mcL Hgb 10.5 L 10.8 L 10.0 L (11.5-15.4) g/dL Hct 32.1 L 34.0 L 31.2 L (35.3-44.9) % Plt Count 143 (140-400) K/mcL Neutrophils # 7.0 (1.6-8.9) K/mcL BMP 06/06/18 05:45 Sodium 137 Potassium 4.8 Chloride 110 H Carbon Dioxide 19 L BUN 37 H Creatinine 1.52 H Glucose 126 H Calcium 9.1 Cardiac Enzymes 06/06/18 Range/Units 16:44 Troponin I < 0.03 (< 0.04) ng/mL - ABG Interpretation ABG results: PT/INR, D-dimer PT 12.5 Seconds (9.4-12.1) H 06/06/18 05:45 - Impressions Impressions Fluoroscopy 06/06/18 13:56 IMPRESSION: Intraprocedural fluoroscopic spot images as above. See separate procedure report for more information. D/ / Paul Mcdermott MD / Paul Mcdermott MD Interpreting Provider: Paul Mcdermott MD Hip X-Ray 06/06/18 13:56 IMPRESSION: Intraprocedural fluoroscopic spot images as above. See separate procedure report for more information. D/ / Paul Mcdermott MD / Paul Mcdermott MD Interpreting Provider: Paul Mcdermott MD Chest X-Ray 06/06/18 16:26 IMPRESSION: Right mid lung pulmonary nodule. This appears new from 2011 and recommend further evaluation with a CT of the chest. Left basilar atelectasis versus pneumonia. D/ / Sean Gutierrez MD / Sean Gutierrez MD Interpreting Provider: Sean Gutierrez MD - Attending Attestation I examined this patient and my medical decision-making was reviewed with the Resident Physician on 06/06/18. I agree with the documented findings, disposition and treatment plan as described except to the extent set forth below. Ms Ramos is currently admitted for acute L hip fracture. She is to go to OR today. She remains moderate to high risk due to potential for worsening clinical status. Ms Ramos is resting. She is to go to OR today. No fever or chills. No CP or SOB. Exam alert Comfortable at rest Mucus membranes dry Heart reg and not tachy No wheeze abd soft I/P 1. Hip fracture - OR today 2. OA Further diagnoses and plan as above. <Rao Mcclure - Last Filed: 06/06/18 13:37> (1) Fall Qualifiers: Encounter type: subsequent encounter Qualified Code(s): W19.XXXD - Unspecified fall, subsequent encounter (2) UTI (urinary tract infection) Qualifiers: Urinary tract infection type: acute cystitis Hematuria presence: with hematuria Qualified Code(s): N30.01 - Acute cystitis with hematuria (3) Hip fracture, left Qualifiers: Encounter type: initial encounter Fracture type: closed Qualified Code(s): S72.002A - Fracture of unspecified part of neck of left femur, initial encounter for closed fracture (4) Hypotension Qualifiers: Hypotension type: hypotension due to hypovolemia Qualified Code(s): I95.89 - Other hypotension; E86.1 - Hypovolemia (7) Anemia Qualifiers: Anemia type: unspecified type Qualified Code(s): D64.9 - Anemia, unspecified <Brock Odonnell - Last Filed: 06/06/18 18:21> (1) Fall Qualifiers: Encounter type: subsequent encounter Qualified Code(s): W19.XXXD - Unspecified fall, subsequent encounter (2) UTI (urinary tract infection) Qualifiers: Urinary tract infection type: acute cystitis Hematuria presence: with hematuria Qualified Code(s): N30.01 - Acute cystitis with hematuria (3) Hip fracture, left Qualifiers: Encounter type: subsequent encounter Fracture type: closed Fracture healing: with routine healing Qualified Code(s): S72.002D - Fracture of unspecified part of neck of left femur, subsequent encounter for closed fracture with routine healing (6) Hypotension Qualifiers: Hypotension type: hypotension due to hypovolemia Qualified Code(s): I95.89 - Other hypotension; E86.1 - Hypovolemia (7) Anemia Qualifiers: Anemia type: other cause Other causes of anemia: acute posthemorrhagic Qualified Code(s): D62 - Acute posthemorrhagic anemia
[2018-06-06] MEDS: FLUoxetine 20 MG CAPSULE PO SCH ×2 (08:59→19:54)
[2018-06-06] MEDS: WATER FOR INJ IVPB SCH (09:00)
[2018-06-06] MEDS: CEFTRIAXONE IVPB SCH (09:00)
[2018-06-06] MEDS: Ketorolac 30 MG/ML VIAL IVP PRN (09:09)
[2018-06-06] MEDS ORDERED: *HR* Rocuronium Bromide 50 MG/5 ML VIAL ONE (13:06)
[2018-06-06] MEDS ORDERED: *HR* Succinylcholine 200 MG/10 ML VIAL IVP ONE (13:06)
[2018-06-06] MEDS ORDERED: *HR* FentaNYL (PF) 100 MCG/2 ML VIAL ONE (13:06)
[2018-06-06] MEDS ORDERED: Lidocaine -MPF 2% 2 ML VIAL ONE ×2 (13:06→13:39)
[2018-06-06] MEDS ORDERED: *HR* Propofol 200 MG/20 ML VIAL IVP ONE (13:06)
[2018-06-06] MEDS ORDERED: Dexamethasone 4 MG/ML VIAL ONE (13:06)
[2018-06-06] MEDS ORDERED: Ondansetron 4 MG/2 ML VIAL ONE ×2 (13:06→15:19)
[2018-06-06] MEDS ORDERED: CeFAZolin Syr 2,000MG/20 ML 2,000 MG/20 ML SYRINGE IVPB ONE (14:11)
[2018-06-06] MEDS ORDERED: EPHEDrine 50 MG/ML VIAL ONE (14:26)
--- NOTE | 2018-06-06 15:10 | Operative Note ---
Date of procedure: 06/06/18 Pre-op diagnosis: Left hip intertrochanteric fracture Post-op diagnosis: same Procedure: Left hip intramedullary nailing Implants: Synthes TFN A Anesthesia: GETA Surgeon: Jimmy Lopez Was there an preschool assistant teacher present: No Estimated blood loss (cc): 250 Specimen: 0 Condition: stable Disposition: PACU Procedure in Detail: The patient received IV antibiotics in the holding area. She was brought to the operating room, sign in was performed. The patient underwent general anesthesia on the hospital bed. She was then transferred to the fracture table in supine position. The patient was positioned with the support groin post, the affected left lower extremity in the traction willett and the contralateral lower extremity in a well-padded limb willett with a hip flexed and abducted out of the way. Fluoroscopy was then brought in, the fractures visualized, and the fracture reduced. We checked on AP and true lateral view of the hip. Once satisfactory the left hip, from the pelvis down to the knee, was prepped and ranulfo ped in usual sterile fashion. A timeout was performed. The level of the greater trochanter was palpated, a 4-5 cm oblique incision was made just proximally, , followed by Bovie dissection. The hip abductor was sharply split in line with its fibers with a curved Spears scissors. The tip of the greater trochanter was palpable. A curved awl was then positioned on the tip. Its position was checked on fluoroscopy, slightly advanced, and we checked the lateral view. Once appropriately positioned, the aggressive awl was then used to open the proximal femur down to level of the lesser trochanter. A short Trochanteric Femoral Nail Advanced with 130 degree neck angle, 11 mm diameter, was assembled, and appropriately inserted into the proximal femur. The appropriate level was checked under fluoroscopy. The triple trochars of 130 degree neck angle was then positioned against the skin, checking fluoroscopy for positioning. Once satisfactory a 2.5 cm incision was made, the fascia was bluntly split along with the muscle fibers of the vastus lateralis. The triple trocar was advanced up against the lateral cortex. The guidepin was then driven up into the femoral head, checking AP and lateral views. The wire was adjusted as needed. The neck was displacing anteriorly. The wire was backed up and the fracture remained reduced, then re-advancing the wire. Also noted on the AP the wire was too superior. The trochars were removed and the nail Down some of the distally. Once again reducing the fracture and drove the guidewire across. A 100 mm long helical blade was chosen. Overdrilled the guidewire, and the helical blade was tapped in place over the guidewire in standard technique. Traction was then taken off the leg, and the fracture compressed. Once close to the edge of the femoral head, the setscrew was then screwed down, and backed off a quarter turn. The triple trochars for the distal static locking screw were placed in the jig, a 1 cm longitudinal incision was made. The trochars were advanced to the cortex, and drilled across. The depth was measured and a the 6 mm long by 5 mm bicortical screw was placed. All trochars and jig were removed. Final fluorosc opy shots were taken and saved showing good AP and lateral views of the hip and also distally at the tip of the nail. The wounds were irrigated with normal saline. Fascia over the abductors was closed with 1 Vicryl [id number] stitches, including the deep subcutaneous fat layer. Subcutaneous tissues were closed with 2-0 Vicryl, and the skin incisions were closed with chuyita. Sterile dressings were applied. The patient was transferred to hospital bed where she was extubated and taken to recovery room in stable condition.
[2018-06-06] MEDS ORDERED: Ondansetron 4 MG/2 ML VIAL IVP ONE (15:19)
[2018-06-06] MEDS ORDERED: *HR* OxyCODONE Immed Rel 5 MG TABLET PO PRN ×2 (15:19→16:01)
[2018-06-06] MEDS ORDERED: *HR* Promethazine 25 MG/ML VIAL IVP PRN (15:19)
[2018-06-06] MEDS ORDERED: *HR* HYDROmorphone (PF) 1 MG/ML SYRINGE IVP PRN (15:19)
[2018-06-06] MEDS ORDERED: Acetaminophen 325 MG TABLET PO PRN (16:01)
[2018-06-06] MEDS ORDERED: Ringers Solution, Lactated 1,000 ML IVC SCH (16:01)
[2018-06-06] MEDS ORDERED: *HR* LORazepam 0.5 MG TABLET PO PRN (16:01)
[2018-06-06] MEDS ORDERED: Sennosides 8.6 MG TABLET PO PRN (16:01)
[2018-06-06] MEDS ORDERED: Naloxone 0.4 MG/ML INJ IVP PRN (16:01)
[2018-06-06] MEDS ORDERED: Aspirin 325 MG TABLET PO ONE (16:26)
[2018-06-06] MEDS ORDERED: Nitroglycerin 1 INCH/GM PACKET TP ONE (16:28)
[2018-06-06 16:52] LABS: Hematocrit 31.2 % (35.3-44.9)
--- NOTE | 2018-06-06 17:17 | Anesthesia Evaluation Post Op ---
Date of Encounter: 06/06/18 Time of Encounter: 17:12 - Vital Signs Vital Signs: Vital Signs/O2 Sat, Most Current Temp Pulse Resp BP Pulse Ox 98.9 F 82 14 105/67 94 06/06/18 16:53 06/06/18 16:53 06/06/18 16:53 06/06/18 16:53 06/06/18 16:53 - Lungs Lungs: Clear Ascult./Percussion - Airway Airway: Non-obstructed - Cardiovascular Regular Rate - Mental Status Mental Status: Alert & Oriented, Answers Appropriately - Pain Pain Scale: 0 (surgical site) Pain Scale used: Numeric (1 - 10) - Nausea Vomiting Nausea Vomiting: Not Present - Hydration Hydration: Ice chips, Has not voided Notes: 06/06/18 17:12 Patient with "chest ache" in PACU. Stat ECG shows sinus rhythm with ventricular rate 78, moderate T wave abnormality, consider lateral and inferior ischemia. Chest ache resolved spontaneously in PACU prior to transfer to [facility]. Spoke with Dr Mcclure and was informed. Troponin ordered by Dr Mcclure. Results pending. 06/06/18 17:18
[2018-06-06] MEDS: *HR* HYDROcodone/Acet 5/325 mg TABLET PO PRN (20:05)
[2018-06-07] MEDS: *HR* HYDROcodone/Acet 5/325 mg TABLET PO PRN ×2 (02:17→07:05)
[2018-06-07 04:00] LABS: Basophils % 0.2 %; Hematocrit 25.3 % (35.3-44.9); Immature Granulocytes % 0.9 % (0-4); Lymphocytes # 1.2 K/mcL (0.6-4.6); Lymphocytes % 13.6 %; Mean Corpuscular HGB Conc 31.6 g/dL (31.6-35.5); Mean Corpuscular Hemoglobin 28.5 pg (28.0-33.3); Mean Platelet Volume 10.1 fL (9.4-12.4); Monocytes # 0.9 K/mcL (0.0-1.3); Monocytes % 9.8 %; Neutrophils # 6.7 K/mcL (1.6-8.9); Platelet Count 133 K/mcL (140-400); Red Blood Count 2.81 M/mcL (3.82-4.97); Red Cell Distribution Width 13.7 % (11.5-14.5); Segmented Neutrophils % 75.5 %
[2018-06-07 04:04] LABS: Calcium 8.7 mg/dL (8.6-10.3); Potassium 5.1 mEq/L (3.5-5.1)
[2018-06-07] MEDS: cefTRIAXone 1,000 MG in Water for inj. (sterile) 20 ML 10 ML IVP SCH (08:32)
[2018-06-07] MEDS: Cholecalciferol (D-3) 1,000 UNIT TABLET PO SCH (08:33)
[2018-06-07] MEDS: FLUoxetine 20 MG CAPSULE PO SCH ×2 (08:33→21:49)
--- NOTE | 2018-06-07 11:10 | Internal Med Progress Note ---
<Brock Odonnell - Last Filed: 06/07/18 15:52> Hospitalist Progress Note - Encounter Date of Encounter: 06/07/18 - Exam Vitals: Temp Pulse Resp BP Pulse Ox 97.7 F 84 16 85/50 99 06/07/18 13:50 06/07/18 13:50 06/07/18 13:50 06/07/18 13:50 06/07/18 13:50 - Assessment and Plan (1) Fall Current Visit: Yes Status: Acute (2) UTI (urinary tract infection) Current Visit: Yes Status: Acute (3) Hip fracture, left Current Visit: Yes Status: Acute (4) DVT prophylaxis Current Visit: Yes Status: Acute (5) CKD (chronic kidney disease) stage 3, GFR 30-59 ml/min Current Visit: Yes Status: Chronic (6) Hypotension Current Visit: Yes Status: Acute (7) Anemia Current Visit: Yes Status: Acute - Time Spent with Patient Total time spent is greater than 50% in coordination of care (as documented) at patient's floor/unit and/or counseling patient: Internal Medicine: Result - Labs CBC & Chem 7: 06/07/18 03:14 06/07/18 03:14 Labs: Short CBC 06/06/18 06/07/18 Range/Units 16:44 03:14 WBC 8.8 (4.3-11.1) K/mcL Hgb 10.0 L 8.0 L D (11.5-15.4) g/dL Hct 31.2 L 25.3 L (35.3-44.9) % Plt Count 133 L (140-400) K/mcL Neutrophils # 6.7 (1.6-8.9) K/mcL BMP 06/07/18 03:14 Sodium 137 Potassium 5.1 Chloride 110 H Carbon Dioxide 21 L BUN 39 H Creatinine 1.66 H Glucose 142 H Calcium 8.7 Cardiac Enzymes 06/06/18 06/06/18 Range/Units 16:44 22:00 Troponin I < 0.03 < 0.03 (< 0.04) ng/mL - ABG Interpretation ABG results: PT/INR, D-dimer PT 12.5 Seconds (9.4-12.1) H 06/06/18 05:45 - Impressions Impressions Chest X-Ray 06/06/18 16:26 IMPRESSION: Right mid lung pulmonary nodule. This appears new from 2012 and recommend further evaluation with a CT of the chest. Left basilar atelectasis versus pneumonia. D/ / Sean Gutierrez MD / Sean Gutierrez MD Interpreting Provider: Sean Gutierrez MD Echocardiogram 06/06/18 17:00 Impressions: LVEF 65%. Mild left ventricular diastolic dysfunction. Normal right ventricular structure and function. Mild pulmonic regurgitation. No pulmonary hypertension. Left Ventricular Wall Motion: Rest Echo Findings All wall segments showed normal motion. Findings: Study Quality * Technically adequate exam. ECG Findings * Normal sinus rhythm. Left Ventricle * LVEF 65%. * Normal LV chamber size, wall thickness and function. * Mild left ventricular diastolic dysfunction. Right Ventricle * Normal right ventricular structure and function. Left Atrium * Mildly dilated left atrium. Right Atrium * Normal right atrial size. Aortic Valve * No aortic regurgitation. * Trileaflet aortic valve. * No aortic stenosis. Mitral Valve * No mitral regurgitation. * Normal mitral valve structure. * No mitral stenosis. Tricuspid Valve * Tricuspid valve not well visualized. * Estimated RA pressure is 3 mmHg. Pulmonic Valve * Pulmonic valve is not well visualized. * No pulmonic stenosis. * Mild pulmonic regurgitation. Pulmonary Artery * Pulmonary artery not well visualized. Aorta * Normally sized aortic root. Pericardium * There is no pericardial effusion present. Interatrial Septum * No evidence of PFO by color Doppler. IVC * The IVC is not dilated. Consult Discharge Plan - Plan Referrals: Felipe Holland DO [Primary Care Provider] - - Attending Attestation I examined this patient and my medical decision-making was reviewed with the Resident Physician on 06/07/17. I agree with the documented findings, disposition and treatment plan as described except to the extent set forth below. Ms Ramos is currently admitted for acute hip fracture s/p ORIF. She remains moderate to high risk due to potential for worsening clinical status. Ms Ramos had episode of chest pain last night. Troponin negative. Echo pending. No fever or chills. H/H lower today and is to get blood today. BP low today as well. Exam alert Comfortable Mucus membranes dry Heart not tachycardic Lungs clear Abd soft Moves extremities I/P 1. Hypotension - most likely related to hypovolemia. To get blood today. 2. Anemia due to blood loss - transfuse today 3. Hip fracture s/p ORIF 4. Chest pain - troponin negative. Echo pending. Will plan on giving low dose antianginal Further diagnoses and plan as above. <Antony Cifuentes - Last Filed: 06/07/18 20:02> Hospitalist Progress Note - Encounter Date of Encounter: 06/07/18 Time of Encounter: 07:45 - Subjective Interval History: Patient is doing well POD#1 s/p ORIF, site of dressing looks good. Recent hemoglobin dropped from 10 to 8, with blood pressures being 90s systolic. Patient is being given 2 units of packed red blood cells. H&H pending. She continues to be on day 3 of Rocephin for her UTI for total of 3-5 days. Patient is currently receiving [place] for postoperative pain, currently on aspirin 81 mg. - Exam Vitals: Temp Pulse Resp BP Pulse Ox 98.4 F 68 16 97/55 96 06/07/18 08:30 06/07/18 07:48 06/07/18 08:30 06/07/18 08:30 06/07/18 08:30 Exam: GVitals: Reviewed General: NAD. Skin: Warm and supple. HEENT: Moist mucous membranes. No conjunctivae pallor. Neck: No lymphadenopathy. No JVD. No carotid bruits. No palpable thyroid. Chest: no chest pain Normal thoracic expansion. Normal breath sounds. Clear to auscultation. Heart: Normal S1 & S2; rhythmic. No rubs or murmurs. Abdomen: Non-distended, soft and non-tender to palpation. No peritoneal reaction. Extremities: s/p surgery of the L hip. ROM not examined of the lower extremity. Neurological: Awake, alert and oriented to person, place and time. Psych: Affect appropriate. - Assessment and Plan (1) Fall Current Visit: Yes Status: Acute Assessment and Plan: -Patient endorses that she fell while trying to reach for something on the floor and lost her balance. -Patient's chest x-ray showed acute intertrochanteric fracture left hip with varus deformity -Patient's head CT was negative for any intracranial infarcts or masses. -Her cervical spine CT showed moderate several multilevel degenerative changes. - She is s/p orthopedic surgery -She has no past medical history of ischemic heart disease, CHF, airway disease like COPD/asthma. Patient is able to ambulate with walker at home without any anginal equivalent symptoms. - Patient's EKG on admission was negative for any ST-T changes, heart strain/block,Brugada pattern,, LVH or HOCM Plan - Further recommendations per orthopedics - PT/OT evaluation following surgery for attentional rehabilitation - Pain control, symptom treatment (2) UTI (urinary tract infection) Current Visit: Yes Status: Acute Assessment and Plan: -Patient's UA was positive for moderate leukocyte esterase and nitrites. There was also evidence of moderate amount of urine blood. -Exam patient endorses no suprapubic pain. She was afebrile with no leukocytosis. - Urine culture growing gram-negative rods, sensitivities pending - Nonseptic at this time Plan -Currently on day 3 of Rocephin. - Duration likely 3-5 days (3) Hip fracture, left Current Visit: Yes Status: Acute Assessment and Plan: as above (4) CKD (chronic kidney disease) stage 3, GFR 30-59 ml/min Current Visit: Yes Status: Chronic Assessment and Plan: - BUNs/creatinine of 37/1.66 - This appears to be around baseline levels - Continue monitor and expect a mild increasing creatinine with next labs after surgery depending on amount of blood loss - Avoid nephrotoxins, renally dose (5) Hypotension Current Visit: Yes Status: Acute Assessment and Plan: -She was hypotensive previously in this visit with blood pressures of 90s/50s - Etiology may be related to bleeding at the interntrochanteric area because of fall .,Hb down from 10-> 8. - Less likely suspicion for sepsis secondary to UTI, patient is afebrile and no evidence of any leukocytosis, pulse and RR are WNL - currently getting transfused - 2pRBCs - We will continue monitor this time (6) Anemia Current Visit: Yes Status: Acute Assessment and Plan: - Acute onset anemia with hemoglobin of 8 this morning - Likely secondary to traumatic fall with fracture of left hip as above - Baseline hemoglobin appears to be 12-13 - Hemoglobin has been stable 3 since admission with mild decreased from 12-10 - Hemodynamically has been borderline hypotensive however has responded to fluids - currently getting transfused 2pRBC. Plan - We will carefully monitor as patient will proceed with surgery per orthopedics this afternoon - Low threshold for additional imaging if patient becomes symptomatic or hypotensive (7) DVT prophylaxis Current Visit: Yes Status: Acute Assessment and Plan: Is currently on Lovenox for DVT prophylaxis as recommended by orthopedic team - Time Spent with Patient Total time spent is greater than 50% in coordination of care (as documented) at patient's floor/unit and/or counseling patient: Internal Medicine: Result - Labs CBC & Chem 7: 06/07/18 17:35 06/07/18 03:14 Labs: Short CBC 06/06/18 06/07/18 Range/Units 16:44 03:14 WBC 8.8 (4.3-11.1) K/mcL Hgb 10.0 L 8.0 L D (11.5-15.4) g/dL Hct 31.2 L 25.3 L (35.3-44.9) % Plt Count 133 L (140-400) K/mcL Neutrophils # 6.7 (1.6-8.9) K/mcL BMP 06/07/18 03:14 Sodium 137 Potassium 5.1 Chloride 110 H Carbon Dioxide 21 L BUN 39 H Creatinine 1.66 H Glucose 142 H Calcium 8.7 Cardiac Enzymes 06/06/18 06/06/18 Range/Units 16:44 22:00 Troponin I < 0.03 < 0.03 (< 0.04) ng/mL - ABG Interpretation ABG results: PT/INR, D-dimer PT 12.5 Seconds (9.4-12.1) H 06/06/18 05:45 - Impressions Impressions Fluoroscopy 06/06/18 13:56 IMPRESSION: Intraprocedural fluoroscopic spot images as above. See separate procedure report for more information. D/ / Paul Mcdermott MD / Paul Mcdermott MD Interpreting Provider: aPul Mcdermott MD Hip X-Ray 06/06/18 13:56 IMPRESSION: Intraprocedural fluoroscopic spot images as above. See separate procedure report for more information. D/ / Paul Mcdermott MD / Paul Mcdermott MD Interpreting Provider: Paul Mcdermott MD Chest X-Ray 06/06/18 16:26 IMPRESSION: Right mid lung pulmonary nodule. This appears new from 2011 and recommend further evaluation with a CT of the chest. Left basilar atelectasis versus pneumonia. D/ / Sean Gutierrez MD / Sean Gutierrez MD Interpreting Provider: Sean Gutierrez MD <Brock Odonnell - Last Filed: 06/07/18 15:52> (1) Fall Qualifiers: Encounter type: subsequent encounter Qualified Code(s): W19.XXXD - Unspecified fall, subsequent encounter (2) UTI (urinary tract infection) Qualifiers: Urinary tract infection type: acute cystitis Hematuria presence: with hematuria Qualified Code(s): N30.01 - Acute cystitis with hematuria (3) Hip fracture, left Qualifiers: Encounter type: subsequent encounter Fracture type: closed Fracture healing: with routine healing Qualified Code(s): S72.002D - Fracture of unspecified part of neck of left femur, subsequent encounter for closed fracture with routine healing (6) Hypotension Qualifiers: Hypotension type: hypotension due to hypovolemia Qualified Code(s): I95.89 - Other hypotension; E86.1 - Hypovolemia (7) Anemia Qualifiers: Anemia type: other cause Other causes of anemia: acute posthemorrhagic Qualified Code(s): D62 - Acute posthemorrhagic anemia <Antony Cifuentes - Last Filed: 06/07/18 20:02> (1) Fall Qualifiers: Encounter type: subsequent encounter Qualified Code(s): W19.XXXD - Unspecified fall, subsequent encounter (2) UTI (urinary tract infection) Qualifiers: Urinary tract infection type: acute cystitis Hematuria presence: with hemat uria Qualified Code(s): N30.01 - Acute cystitis with hematuria (3) Hip fracture, left Qualifiers: Encounter type: subsequent encounter Fracture type: closed Fracture healing: with routine healing Qualified Code(s): S72.002D - Fracture of unspecified part of neck of left femur, subsequent encounter for closed fracture with routine healing (5) Hypotension Qualifiers: Hypotension type: hypotension due to hypovolemia Qualified Code(s): I95.89 - Other hypotension; E86.1 - Hypovolemia (6) Anemia Qualifiers: Anemia type: other cause Other causes of anemia: acute posthemorrhagic Qualified Code(s): D62 - Acute posthemorrhagic anemia
--- NOTE | 2018-06-07 11:48 | Electrocardiograph Report ---
[address] [place], [place] [address] Test Date: 2018-06-04 Pat Name: Mayra Ramos Department: EXAM8 Room: [facility] Gender: F Cloth Layer: : 1930 Requested By: Nehemiah Pfeiffer Order Number: [id number] Reading MD: Shreyas Carreon Measurements Intervals [place] Rate: 77 P: 50 [place]: 207 QRS: 43 QRSD: 97 T: 61 QT: 402 QTc: 455 Interpretive Statements Sinus rhythm Electronically Signed On 06-07-2018 11:46:12 EDT by Shreyas Carreon
--- NOTE | 2018-06-07 13:14 | Orthopedics Progress Note ---
Date of Encounter: 06/07/18 Time of Encounter: 12:45 - Assessment and Plan (1) Hip fracture, left Current Visit: Yes Status: Acute POD#1 s/p left hip IM nailing 06/06/18 Patient doing well overall. Dressings to left hip to be changed tomorrow. Continue to progress with therapy. WBAT with walker. Pain control per primary team. DVT prophylaxis - recommend 2 weeks lovenox THEN 4 weeks aspirin 325 daily. Will follow up with Jen Berkowitz PA-C in [facility] office at [facility]2. appt card taken to floor. Qualifiers: Encounter type: subsequent encounter Fracture type: closed Fracture heali ng: with routine healing Qualified Code(s): S72.002D - Fracture of unspecified part of neck of left femur, subsequent encounter for closed fracture with routine healing Subjective Principal diagnosis: s/p left hip IM nailing 06/06/18 Interval history: Patient doing well today. She states her pain is worse today compared to yesterday. She was able to get up with therapy and transition into bedside chair. Denies any concerns at this time. Denies numbness or tingling to extremity. Objective Vital signs: Vital Signs Temp Pulse Resp BP Pulse Ox 06/07/18 09:58 98.5 F 73 16 101/58 95 06/07/18 08:30 98.4 F 16 97/55 96 06/07/18 07:48 98.5 F 68 14 93/53 95 06/07/18 06:35 98.3 F 68 16 98/57 95 06/07/18 03:45 98.0 F 72 17 90/52 96 06/07/18 00:33 97 06/06/18 22:59 98.2 F 76 16 95/59 97 06/06/18 18:24 98.6 F 87 16 110/76 95 06/06/18 17:15 98.4 F 82 15 108/78 97 06/06/18 16:53 98.9 F 82 14 105/67 94 06/06/18 16:20 99.2 F 72 16 102/58 92 06/06/18 15:52 98.7 F 78 14 109/46 96 06/06/18 15:42 98.7 F 77 14 120/61 97 06/06/18 15:32 76 14 106/64 99 06/06/18 15:22 79 20 110/58 94 06/06/18 15:12 99.0 F 84 24 144/66 94 Intake and Output 06/06/18 06/07/18 06/07/18 23:59 07:59 15:59 Intake Total 480 / 480 Output Total 350 / 350 Balance -350 / -350 480 / 480 Intake: Oral 360 / 360 Free Water 120 / 120 Output: Catheter 350 / 350 Other: Meal Breakfast Percent of Meal Consumed 25% # Voids 1 Weight 58.7 kg Patient Weight 06/07/18 23:59 Weight 58.7 kg Incision: clean and dry (dressings to left hip are c/d/i with no visible drainage or erythema noted. no calf tenderness to palpation. good dorsiflexion of foot) - Labs CBC & BMP: 06/07/18 03:14 06/07/18 03:14 Labs: Abnormal lab results RBC 2.81 M/mcL (3.82-4.97) L 06/07/18 03:14 Hgb 8.0 g/dL (11.5-15.4) L D 06/07/18 03:14 Hct 25.3 % (35.3-44.9) L 06/07/18 03:14 Plt Count 133 K/mcL (140-400) L 06/07/18 03:14 PT 12.5 Seconds (9.4-12.1) H 06/06/18 05:45 Chloride 110 mEq/L (98-107) H 06/07/18 03:14 Carbon Dioxide 21 mEq/L (23-29) L 06/07/18 03:14 BUN 39 mg/dL (8-23) H 06/07/18 03:14 Creatinine 1.66 mg/dL (0.60-1.20) H 06/07/18 03:14 Est GFR ( Amer) 35 (> 60) L 06/07/18 03:14 Est GFR (Non-Af Amer) 29 (> 60) L 06/07/18 03:14 Glucose 142 mg/dL (70-105) H 06/07/18 03:14 Urine Clarity Cloudy (Clear) A 06/04/18 19:23 Urine Blood Moderate (Negative) H 06/04/18 19:23 Urine Nitrite Positive (Negative) A 06/04/18 19:23 Ur Leukocyte Esterase Moderate (Negative) H 06/04/18 19:23 Urine Microscopic WBC 30-50 per hpf (0-3) H 06/04/18 19:23 Urine Bacteria Many per hpf (None-Few) H 06/04/18 19:23 Ur Culture Indicated? YES (NO) A 06/04/18 19:23 Consult Discharge Plan - Plan Referrals: Felipe Holland DO [Primary Care Provider] -
[2018-06-07] MEDS ORDERED: 0.9 % Sodium Chloride 250 ML ONE ×2 (13:19→18:25)
[2018-06-07] MEDS: Aspirin Enteric Coated 81 MG Tablet PO SCH (13:23)
[2018-06-07] MEDS: *HR* Enoxaparin 30 MG/0.3 ML SYRINGE SQ SCH (17:58)
[2018-06-07 18:04] LABS: Hematocrit 29.5 % (35.3-44.9)
[2018-06-07 18:10] LABS: Hemoglobin 9.6 g/dL (11.5-15.4)
[2018-06-07] MEDS ORDERED: Nitroglycerin 1 INCH/GM PACKET TP SCH (18:15)
[2018-06-07 23:06] LABS: Hematocrit 29.7 % (35.3-44.9)
[2018-06-08 06:06] LABS: Basophils % 0.5 %; Eosinophils # 0.3 K/mcL (0.0-0.6); Eosinophils % 3.2 %; Hematocrit 31.6 % (35.3-44.9); Hemoglobin 10.4 g/dL (11.5-15.4); Immature Granulocytes % 3.4 % (0-4); Lymphocytes # 1.9 K/mcL (0.6-4.6); Lymphocytes % 24.1 %; Mean Corpuscular HGB Conc 32.9 g/dL (31.6-35.5); Mean Corpuscular Hemoglobin 28.8 pg (28.0-33.3); Mean Corpuscular Volume 87.5 fL (83.0-100.0); Mean Platelet Volume 10.2 fL (9.4-12.4); Monocytes # 0.8 K/mcL (0.0-1.3); Monocytes % 10.9 %; Neutrophils # 4.5 K/mcL (1.6-8.9); Platelet Count 146 K/mcL (140-400); Red Blood Count 3.61 M/mcL (3.82-4.97); Red Cell Distribution Width 14.5 % (11.5-14.5); Segmented Neutrophils % 57.9 %
[2018-06-08 06:21] LABS: Calcium 8.9 mg/dL (8.6-10.3); Potassium 5.1 mEq/L (3.5-5.1)
--- NOTE | 2018-06-08 06:38 | Orthopedics Progress Note ---
Date of Encounter: 06/08/18 Time of Encounter: 06:38 Subjective Principal diagnosis: s/p left hip IM nailing 06/06/18 Interval history: Patient was seen this morning doing well without complaints. Afebrile vital signs stable. Operative extremity: Neurovascularly intact Dressing clean dry and intact Calves nontender Assessment and plan: Continue with postoperative care Stable for discharge Objective Vital signs: Vital Signs Temp Pulse Resp BP Pulse Ox 06/08/18 06:32 97.7 F 79 15 157/74 94 06/08/18 04:03 98.7 F 76 15 143/68 94 06/07/18 22:48 98.8 F 78 17 122/71 94 06/07/18 21:45 98.6 F 80 17 131/63 95 06/07/18 18:58 98.6 F 81 20 95/56 96 06/07/18 18:30 98.6 F 84 18 97/56 97 06/07/18 16:50 97.8 F 83 16 126/66 96 06/07/18 14:30 97.9 F 87 16 93/56 99 06/07/18 13:50 97.7 F 84 16 85/50 99 06/07/18 13:30 97.4 F L 82 18 85/53 95 06/07/18 09:58 98.5 F 73 16 101/58 95 06/07/18 08:30 98.4 F 16 97/55 96 06/07/18 07:48 98.5 F 68 14 93/53 95 Intake and Output 06/07/18 06/07/18 06/08/18 15:59 23:59 07:59 Intake Total 960 / 960 750 / 750 200 / 200 Output Total 550 / 550 Balance 410 / 410 750 / 750 200 / 200 Intake: Oral 600 / 600 200 / 200 200 / 200 Blood Product 0 / 0 550 / 550 Rbcs Leuko Poor As-3 2nd Unit 0 / 0 300 / 300 [id number] Rbcs Leuko Poor As-3 Ph Unit 250 / 250 [id number] Free Water 360 / 360 Output: Urine 550 / 550 Other: Meal Lunch Percent of Meal Consumed 30% # Voids 2 1 Weight 58.8 kg Patient Weight 06/08/18 23:59 Weight 58.8 kg - Labs CBC & BMP: 06/08/18 05:24 06/08/18 05:24 Labs: Abnormal lab results RBC 3.61 M/mcL (3.82-4.97) L 06/08/18 05:24 Hgb 10.4 g/dL (11.5-15.4) L 06/08/18 05:24 Hct 31.6 % (35.3-44.9) L 06/08/18 05:24 PT 12.5 Seconds (9.4-12.1) H 06/06/18 05:45 Chloride 110 mEq/L (98-107) H 06/08/18 05:24 BUN 34 mg/dL (8-23) H 06/08/18 05:24 Creatinine 1.38 mg/dL (0.60-1.20) H 06/08/18 05:24 Est GFR ( Amer) 44 (> 60) L 06/08/18 05:24 Est GFR (Non-Af Amer) 36 (> 60) L 06/08/18 05:24 Urine Clarity Cloudy (Clear) A 06/04/18 19:23 Urine Blood Moderate (Negative) H 06/04/18 19:23 Urine Nitrite Positive (Negative) A 06/04/18 19:23 Ur Leukocyte Esterase Moderate (Negative) H 06/04/18 19:23 Urine Microscopic WBC 30-50 per hpf (0-3) H 06/04/18 19:23 Urine Bacteria Many per hpf (None-Few) H 06/04/18 19:23 Ur Culture Indicated? YES (NO) A 06/04/18 19:23 Consult Discharge Plan - Plan Referrals: Felipe Holland DO [Primary Care Provider] -
[2018-06-08] MEDS ORDERED: Isosorbide MONOnitrate (24 HR) 30 MG TAB.ER.24H PO SCH (09:00)
[2018-06-08] MEDS: Cholecalciferol (D-3) 1,000 UNIT TABLET PO SCH (09:09)
[2018-06-08] MEDS: Aspirin Enteric Coated 81 MG Tablet PO SCH (09:09)
[2018-06-08] MEDS: *HR* HYDROcodone/Acet 5/325 mg TABLET PO PRN (09:09)
[2018-06-08] MEDS: FLUoxetine 20 MG CAPSULE PO SCH (09:09)
[2018-06-08] MEDS: cefTRIAXone 1,000 MG in Water for inj. (sterile) 20 ML 10 ML IVP SCH (09:09)
--- NOTE | 2018-06-08 11:02 | Discharge Summary ---
- NOTES TO OUTPATIENT PROVIDER Notes to Outpatient Provider: Pt admitted with acute hip fracture. Also had treated UTI. Going to SNF for rehab. Orders not resulted at time of discharge: Pending orders 06/04/18 19:23 Culture,Urine [RM] Stat 06/08/18 10:55 Urinalysis Reflex Cult & Micro [URIN] Stat Date of Encounter: 06/08/18 Time of Encounter: 10:45 - Discharge Diagnosis (1) Fall Priority: Secondary Status: Acute Qualifiers: Encounter type: subsequent encounter Qualified Code(s): W19.XXXD - Unspecified fall, subsequent encounter (2) UTI (urinary tract infection) Priority: Secondary Status: Acute Qualifiers: Urinary tract infection type: acute cystitis Hematuria presence: with hematuria Qualified Code(s): N30.01 - Acute cystitis with hematuria (3) Hip fracture, left Priority: Secondary Status: Acute Qualifiers: Encounter type: subsequent encounter Fracture type: closed Fracture healing: with routine healing Qualified Code(s): S72.002D - Fracture of unspecified part of neck of left femur, subsequent encounter for closed fracture with routine healing (4) CKD (chronic kidney disease) stage 3, GFR 30-59 ml/min Priority: Secondary Status: Chronic (5) Hypotension Priority: Secondary Status: Resolved Qualifiers: Hypotension type: hypotension due to hypovolemia Qualified Code(s): I95.89 - Other hypotension; E86.1 - Hypovolemia (6) Anemia Priority: Secondary Status: Acute Qualifiers: Anemia type: other cause Other causes of anemia: acute posthemorrhagic Qualified Code(s): D62 - Acute posthemorrhagic anemia Hospital course: Ms. Ramos is a 87 year old female admitted after a fall. Found to have acute hip fracture. Ms Ramos was admitted to med surg. She was found to have UTI and treated with abx. She was seen by orthopedics and taken to OR for ORIF. She tolerated well but had some hypotension post surgery. She was given IV fluids and blood. Today she is afebrile and H/H has improved. Repeat urine was obtained and sent for repeat culture and is pending. She will be discharged to SNF today. - Time Spent with Patient Total time spent providing and/or coordinating discharge services: 41 min - Discharge Medications Prescriptions: New Calcium Carbonate [Tums] 1,000 mg PO Q4HR PRN tab.chew PRN Reason: Heartburn HYDROcodone/Acet 5/325 mg [[place] 5-325 mg] 1 tab PO Q4HR PRN 2 Days #10 tablet PRN Reason: Pain Aspirin Enteric Coated [Aspirin EC] 81 mg PO DAILY tablet. Cholecalciferol (D-3) [Vitamin D] 1,000 unit PO DAILY tablet Enoxaparin [Lovenox] 30 mg SQ Q24H syringe GuaiFENesin ER [Mucinex] 600 mg PO BID PRN tbbp.12hr PRN Reason: Congestion Isosorbide MONOnitrate (24 HR) [Imdur] 15 mg PO DAILY tab.er.24h Continue Docusate [Colace] 100 mg PO DAILY FLUoxetine HCl [Fluoxetine HCl] 40 mg PO BID Acetaminophen [8Hr Arthritis Pain] 650 mg PO Q8H PRN PRN Reason: Pain LORazepam [Ativan] 0.5 mg PO Q12H PRN 2 Days #2 tablet PRN Reason: Anxiety Home Medications: Acetaminophen [8Hr Arthritis Pain] 650 mg PO Q8H PRN 06/05/18 [History] Docusate [Colace] 100 mg PO DAILY 06/05/18 [History] FLUoxetine HCl [Fluoxetine HCl] 40 mg PO BID 06/05/18 [History] Aspirin Enteric Coated [Aspirin EC] 81 mg PO DAILY tablet. 06/08/18 [Rx] Calcium Carbonate [Tums] 1,000 mg PO Q4HR PRN tab.chew 06/08/18 [Rx] Cholecalciferol (D-3) [Vitamin D] 1,000 unit PO DAILY tablet 06/08/18 [Rx] Enoxaparin [Lovenox] 30 mg SQ Q24H syringe 06/08/18 [Rx] GuaiFENesin ER [Mucinex] 600 mg PO BID PRN tbbp.12hr 06/08/18 [Rx] HYDROcodone/Acet 5/325 mg [[place] 5-325 mg] 1 tab PO Q4HR PRN 2 Days #10 tablet 06/08/18 [Rx] Isosorbide MONOnitrate (24 HR) [Imdur] 15 mg PO DAILY tab.er.24h 06/08/18 [Rx] LORazepam [Ativan] 0.5 mg PO Q12H PRN 2 Days #2 tablet 06/08/18 [Rx] Allergies/Adverse Reactions: Allergy/AdvReac Type Severity Reaction Status Date / Time No Known Allergies Allergy Verified 06/05/18 09:29 Date of admission: 06/04/18 22:13 Primary care physician: Olvin Holland DO Consults: 06/06/18 16:01 Consult to Occupational Therapy [CONS] Routine Comment: Evaluate, develop and implement POC Reason for Consult: post hip surgery Does patient have active BEDREST order?: No Is patient medically & hemodynamically stable?: Yes Patient assessed for mobility or mobilized this visit?: No Consult to Orthopedic Navigator [CONS] [CONS] Routine Consult to Physical Therapy [CONS] Routine Comment: Evaluate, develop and implement POC Reason for Consult: post hip surgery Does patient have active BEDREST order?: No Is patient medically & hemodynamically stable?: Yes Patient assessed for mobility or mobilized this visit?: No Consult to Saddle Maker [CONS] Routine Reason for SW Consult: post -op hip fracture RT Post Op Consult [CONS] Routine Discharging clinician: Brock Odonnell Anticipated date of discharge: 06/08/18 - Constitutional Vitals: Temp Pulse Resp BP Pulse Ox 97.7 F 79 15 157/74 94 06/08/18 06:32 06/08/18 06:32 06/08/18 06:32 06/08/18 06:32 06/08/18 06:32 General appearance: Present: A&O X 3, pleasant Exam: See below - Head Head exam: Present: normocephalic - Eye Eye exam: Present: EOMI, conjuntiva pink - ENT ENT exam: Present: mucous membranes moist - Neck Neck exam general surgery: Present: supple - Respiratory Respiratory exam: Present: CTAB. Absent: rales, rhonchi, wheezes - Cardiovascular Cardiovascular exam: Present: RRR. Absent: tachycardia - GI/Abdominal GI/Abdominal exam: Present: soft. Absent: tenderness - Extremities Exam Extremities exam: Present: tenderness, warm - Neurological Exam Neurological exam: Present: alert, oriented X3, no focal deficits - Skin Skin exam: Present: dry, warm - Patient Status Disposition: Transfer SNF Condition: Good Functional capacity at discharge: uses cane/walker Overall status at discharge: patient is progressing back to baseline - Discharge Instructions Instructions: Urinary Tract Infection in Women (DC), Fall Prevention ([place]) Follow Up With: Jen Berkowitz PAC [Physician Dry House Tender] - 06/19/18 10:30 am Felipe Holland DO [Primary Care Provider] - Ana Hunt MD [Partnered Physician] - 06/13/18 3:00 pm Additional Instructions: Discharge Instructions: Total Hip Replacement Please call [facility] ([phone]), your Primary Care Physician, or report to the Emergency Room if you have any of the following symptoms: Nausea, vomiting, fever greater that 101.5, swelling, chest pain, shortness of breath, increased pain/redness/drainage/odor for your incision site, numbness/tingling, or any other concerning symptoms. ACTIVITY:Weight-bearing as tolerated for 8 weeks with hip dislocation precautions that physical therapy taught you. You may progress as tolerated under the guidance of your physical therapist. You do not need to sleep with a pillow between your legs. You can also seep on the operative side or on your stomach. Incentive Spirometer 10 times an hour. MEDICATIONS: Upon discharge resume your home medications. Take all the medications as prescribed. Take a stool softener if taking narcotic pain medications. Stool softeners are only effective if you drink enough fluids. Drink 6-8 glass of water or fluids a day, unless this is not allowed for another health problem. Despite using stool softeners, if you haven't had a bowel movement in 3 days, please switch to a gentle laxative. Gentle laxatives are sold over the counter. You should have a bowel movement within 24 hours, if not call the office. You will be discharged from the hospital with a prescription for pain medication. You are encouraged to decrease the use of narcotic pain medication as tolerated. Should you require a refill, please call the office. [facility] prescribes narcotic pain medication for only 4-6 weeks after surgery. If you require pain medication beyond this time period, you may be referred to your Primary Care Physician or to the Pain Clinic for further evaluation. Plan ahead for refills on pain medication as many narcotics either need to be picked up at the office or mailed. It is best to call 48-72 hours in advance of needing a prescription refill so you don't run out of medication. To help control the post-operative pain, you may take NSAIDs (Aleve,Advil, Motrin, ibuprofen, naprosyn) or Tylenol as prescribed on the bottle in addition to the pain medication. ANTICOAGULATION (blood thinners): Continue your Aspirin, Lovenox or Coumadin as prescribed to help prevent a blood clot in the leg or in the lungs. As long as your incision remains dry and you tolerate the NSAIDs (Aleve, Advil, Motrin, Ibuprofen, Naprosyn), it is OK to use the NSAIDS while you are taking your anticoagulation medication. Should your incision start to drain, stop the NSAID and contact our office. Common symptoms of blood clot in the legs include: localized pain, swelling, calf tenderness, redness or discoloration of the skin. Blood clot in the lung symptoms include: shortness of breath, rapid pulse, sweating, and chest pain that worsens with deep breathing, coughing up blood, lightheadedness, feelings of anxiety. If you experience any of these symptoms notify your physician immediately, go to the emergency room, or if having trouble breathing, call 911. WOUND CARE: Leave the dressing on for 7 to 10days. You may change the dressing if it is saturated greater than 50%. Do not get the dressing wet at anytime. Wash your hands with antibacterial soap, rinse and dry prior to any wound care. If you have chuyita the visiting nurse or rehab facility can remove the stapes 10-14 days after surgery and place steri-strips across the wound. Leave the steri-strips in place until they fall off on their own. You may let water from the shower run on top of the steri-strips. If you do not have a visiting nurse or rehab facility, you will need to return to the office at 10-14 days for the chuyita to be removed. If you have itching or redness around the dressing call the office. FOLLOW-UP: Please follow up with your surgeon in the orthopedic clinic in 6 weeks from the day of surgery. If you have chuyita that need to be removed, you will need to come back to the office in 10-14 days from the day of surgery. - Diet and Activity Activity: as per physical therapy (As per Dr. Meier) Diet: low fat, low cholesterol, low salt diet
--- NOTE | 2018-06-08 11:05 | Physician Discharge Referral ---
ExtendedCare Referral Info Transfer To: [place] Provider in Charge after Transfer: PCP Institutional Level of Care: Skilled - Diagnosis (1) Fall Priority: Secondary Status: Acute (2) UTI (urinary tract infection) Priority: Secondary Status: Acute (3) Hip fracture, left Priority: Primary Status: Acute (4) CKD (chronic kidney disease) stage 3, GFR 30-59 ml/min Priority: Secondary Status: Chronic (5) Hypotension Status: Resolved (6) Anemia Priority: Secondary Status: Acute (7) Chest pain Priority: Secondary Status: Acute Expected Duration of Placement: Less than 30 days Prognosis: Good Aware of Diagnosis: Patient, Family Aware of Prognosis: Patient, Family - Transfer Medications Prescriptions: HYDROcodone/Acet 5/325 mg [[place] 5-325 mg] 1 tab PO Q4HR PRN 2 Days #10 tablet PRN Reason: Pain LORazepam [Ativan] 0.5 mg PO Q12H PRN 2 Days #2 tablet PRN Reason: Anxiety Home Medications: Acetaminophen [8Hr Arthritis Pain] 650 mg PO Q8H PRN 06/05/18 [History] Docusate [Colace] 100 mg PO DAILY 06/05/18 [History] FLUoxetine HCl [Fluoxetine HCl] 40 mg PO BID 06/05/18 [History] Aspirin Enteric Coated [Aspirin EC] 81 mg PO DAILY tablet.dr 06/08/18 [Rx] Calcium Carbonate [Tums] 1,000 mg PO Q4HR PRN tab.chew 06/08/18 [Rx] Cholecalciferol (D-3) [Vitamin D] 1,000 unit PO DAILY tablet 06/08/18 [Rx] Enoxaparin [Lovenox] 30 mg SQ Q24H syringe 06/08/18 [Rx] GuaiFENesin ER [Mucinex] 600 mg PO BID PRN tbbp.12hr 06/08/18 [Rx] HYDROcodone/Acet 5/325 mg [[place] 5-325 mg] 1 tab PO Q4HR PRN 2 Days #10 tablet 06/08/18 [Rx] Isosorbide MONOnitrate (24 HR) [Imdur] 15 mg PO DAILY tab.er.24h 06/08/18 [Rx] LORazepam [Ativan] 0.5 mg PO Q12H PRN 2 Days #2 tablet 06/08/18 [Rx] Allergies/Adverse Reactions: Allergy/AdvReac Type Severity Reaction Status Date / Time No Known Allergies Allergy Verified 06/05/18 09:29 - Respiratory Orders None Smoking Cessation: Smoking cessation has been advised. For more information, call the [place] Tobacco Quit Line at 1-235-CRUW-NOW. - Lab Orders Lab Orders: 2 Step Mantoux Test per State regulation - Ancillary Orders May use pressure relief devices daily prn, May go on XAVI w/family/respon constitution party w/meds at nurse discretion PRN, May consult with Dentist, Continuity Clerk, Livestock Slaughterer PRN - Advance Directives Code Status: Full Code - History and Physical History/Physical reviewed & approved w/add comments: Hip repaired - Mobility Orders Chair, Ambulate - Rehabiliation Orders Rehab Potential: Good Rehab Orders: Evaluation for Physical Therapy, Evaluation for Occupational Therapy - Treatments Skin tear care topically daily PRN per policy, May check for fecal impaction rectally daily PRN, Fleet enema rectally every other day PRN cleansing purposes - Diet Orders Cardiac CERTIFICATION: I certify that the transfer of the above named patient to an Extended Care Facility is necessary for the continuing treatment of the diagnosis listed. The above information is true and accurate reflection of patient's current condition. Confidential - Redisclosure prohibited without a patient's written consent.
[2018-06-08 11:53] VITALS: BP 110/70
[2018-06-08 14:25] LABS: Bilirubin,Urine Negative (Negative); Blood,Urine Moderate (Negative); Clarity,Urine Clear (Clear); Color,Urine Yellow (Yellow); Glucose,Urine (UA) Normal (Normal); Ketones,Urine Negative (Negative); Leukocyte Esterase,Urine Trace (Negative); Nitrite,Urine Negative (Negative); Protein,Urine Negative (Neg-Trace); Urobilinogen,Urine Normal (Normal)
--- NOTE | 2018-06-08 14:26 | Electrocardiograph Report ---
[address] [place], [place] [address] Test Date: 2018-06-06 Pat Name: Mayra Ramos Department: 101 Room: [facility] Gender: F Sports Centre Manager: [facility] : 1930 Requested By: Evin Smith Order Number: [id number] Reading MD: Latoya Chinchilla Measurements Intervals [place] Rate: 78 P: 47 TN: 186 QRS: 31 QRSD: 93 T: 44 QT: 360 QTc: 393 Interpretive Statements SINUS RHYTHM MODERATE T-WAVE ABNORMALITY, CONSIDER LATERAL ISCHEMIA MODERATE T-WAVE ABNORMALITY, CONSIDER INFERIOR ISCHEMIA Electronically Signed On 06-08-2018 14:24:29 EDT by Latoya Chinchilla
[2018-06-08 14:28] LABS: Bacteria,Urine None Seen per hpf (None-Few); Hyaline Casts,Urine None Seen per lpf (None-Few); RBC,Urine 15-30 per hpf (0-3); Squamous Epithelial Cell,Urine Moderate per lpf (None-Few); WBC,Urine 0-3 per hpf (0-3)
[2018-06-08] MEDS: *HR* Enoxaparin 30 MG/0.3 ML SYRINGE SQ SCH (15:12)
== END 2018-06-08 18:01 | DRG 481 ==
LOC: 3NENU 17:54 → EMEROOARM 17:54 → OBSVTOIN 22:13 → SUATTDRO 22:13 → 3NENU 22:43
PROVIDERS: ADMIT Internal Medicine; ATTEND Internal Medicine